=== PATIENT | female | born 1990 | race Caucasian/White ===

== ENCOUNTER 2017-05-22 23:19 | Outpatient (CLI) | payer OTHER ==
[2017-05-22 23:38] VITALS: BP 120/60
--- NOTE | 2017-06-22 22:30 | HISTORY & PHYSICAL EXAMINATION ---
DATE OF SERVICE: 05/22/2017 Physician: Robin Jeffery MD PATIENT IDENTIFICATION: The patient is a 26-year-old G2, P1, female whose EDC was July by early exam and ultrasound. This makes her 31.1 weeks. CHIEF COMPLAINT: Vaginal fluid leak. HISTORY OF PRESENT ILLNESS: The patient states that roughly 1700 last p.m., she was exercising at which time she had fluid run down her legs. She is not sure whether this was sweat or not. She states this happened a single time. Today at roughly 10 a.m., she was once again exercising, at which time she noticed some perineal wetness. She denies any gush or any other fluid loss. She notes good motion. She denies any contractions. Her first was complicated with SROM at 36 weeks with delivery at 37 weeks. This has been complicated with an episode of contraction at 28 weeks. She is noted to be O negative, her 50 gram Glucola was 80. The patient has currently been under the care of [facility] in [place], [place]. She states this otherwise has been unremarkable. PAST MEDICAL HISTORY: Positive for PUPPS during this . She has been seen by dermatology. PAST SURGICAL HISTORY: Denies any C-sections, appendectomy or D and C. ALLERGIES: NONE KNOWN. CURRENT MEDICATIONS: She is currently taking gummy vitamins, as well as hydrocortisone ointment. HABITS: The patient denies use of alcohol, tobacco or street or addictive drugs. Denies any use of THC. SOCIAL HISTORY: The patient is to an active duty [employer]. She lives back in [place] with her child. She works as a homemaker. PHYSICAL EXAMINATION: VITAL SIGNS: Temperature is 36.8, pulse 75, blood pressure 129/74. heart tracing showed a baseline of 140 with excellent accelerations and a category 1 strip. HEENT: Pupils equal and round. Extraocular muscles are intact. Thyroid is not palpably enlarged. HEART: Regular rate and rhythm without murmurs. LUNGS: Lung yancey are clear without rales or wheezes. ABDOMEN: Soft, gravid. It is nontender. PELVIC: Examination by the nurse shows evidence of negative ROM plus. She had a group B strep done, which was negative. Urinalysis was unremarkable. EXTREMITIES: DTRs are negative. She shows no evidence of any swelling or peripheral edema. IMPRESSION: A 26-year-old G2, P1 female, who is 31.1 weeks without evidence of spontaneous rupture of membranes. PLAN: I have discussed with her the possibility that things can change, but at this time, there is no evidence of SROM. It is important, however, should she develop fluid loss that she return. She is currently scheduled to go back to see her [facility] back in [place] this Wednesday. She was told to keep this appointment. TD: 06/22/2017 22:29
== END 2017-05-23 00:48 | disposition home or self-care (01) ==
LOC: WFO 23:19 → FBP 23:22 → WFO 05-23 00:48
PROVIDERS: ATTEND Obstetrics & Gynecology
DX: Z34.82 Encounter for supervision of other normal pregnancy, second trimester (principal)
CPT/HCPCS: 99212

== ENCOUNTER 2017-06-22 15:30 | Outpatient (CLI) | payer OTHER ==
[2017-06-22 16:40] LABS: BILIRUBIN,URINE NEGATIVE (NEGATIVE); GLUCOSE, URINE (UA) NEGATIVE (NEGATIVE); KETONES,URINE (UA) NEGATIVE (NEGATIVE); LEUKOCYTE ESTERASE, URINE NEGATIVE (NEGATIVE); NITRITE,URINE NEGATIVE (NEGATIVE); OCCULT BLOOD,URINE NEGATIVE (NEGATIVE); PROTEIN,URINE NEGATIVE (NEGATIVE); UROBILINOGEN,URINE 0.2 (NORMAL) E.U./dL (NORMAL)
[2017-06-22 16:42] LABS: CLARITY,URINE CLEAR (CLEAR)
[2017-06-22 16:44] LABS: RUPTURE OF MEMBRANES PLUS NEGATIVE (NEGATIVE)
[2017-06-22 16:47] LABS: BACTERIA,URINE Rare /HPF (None Seen); RBC,URINE None Seen /HPF (0-5); SQUAMOUS EPITHELIAL CELL,UR MOD Squamous (<= Few)
[2017-06-22 17:59] VITALS: BP 130/69
== END 2017-06-22 18:03 | disposition home or self-care (01) ==
LOC: WFO 15:30 → FBP 15:32 → WFO 18:03
PROVIDERS: ATTEND Obstetrics & Gynecology
DX: Z34.83 Encounter for supervision of other normal pregnancy, third trimester (principal)
CPT/HCPCS: 81001; 84112; 87086; 87797; 99213